=== PATIENT | male | born 1955 | race Caucasian/White ===

== ENCOUNTER → 2016-10-11 | Outpatient (REF) | LOC: WSOH 15:19 | DX: Z23 Encounter for immunization (principal) ==

== ENCOUNTER → 2017-01-17 | Outpatient (REF) | LOC: WSOH 15:15 | DX: Z23 Encounter for immunization (principal) ==

== ENCOUNTER 2018-07-15 06:46 | Day surgery (SDC) | payer BC ==
[~2018-07-15] VITALS: Ht 172.7 cm; Wt 99.9 kg
[2018-07-15] VITALS (7 sets, daily range): BP systolic 171–201; BP diastolic 100–112; PULSE 48–62; TEMP 97.1
[2018-07-15] MEDS ORDERED: PROAIR HFA0.09 MG/AC IH (07:53)
[2018-07-15 07:58] LABS: HEMATOCRIT 42.3 % (42.0-52.0); HEMOGLOBIN 14.1 g/dl (13.5-18.0); MEAN CELL VOLUME 91 fl (80.0-100.0); MEAN CORPUSCULAR HEMOGLOBIN 30 pg (27.0-31.0); MEAN CORPUSCULAR HGB CONC 33 g/dl (33.0-37.0); MEAN PLATELET VOLUME 9.8 fl (7.4-10.4); PLATELET COUNT 213 K/mm3 (130-400); RED BLOOD COUNT 4.65 M/mm3 (4.20-5.60); REDCELL DISTRIBUTION WIDTH-CV 13.3 % (11.5-14.5)
[2018-07-15 08:03] LABS: PROTHROMBIN TIME 11.1 SECONDS (9.7-12.8)
[2018-07-15] MEDS ORDERED: IPRATROPIUM BROM3 M1 IH (08:07)
[2018-07-15 08:10] LABS: CALCIUM 9.2 mg/dL (8.4-10.2); CREATININE, serum 0.71 mg/dL (0.66-1.25); POTASSIUM 4.7 mmol/L (3.4-5.0)
[2018-07-15] MEDS ORDERED: 00186-0370-20 IH (08:10)
[2018-07-15] MEDS ORDERED: DOXYCYCLINE HY100 MG PO (08:11)
[2018-07-15] MEDS ORDERED: COZAAR100 MG PO ×2 (08:12→08:13)
[2018-07-15] MEDS ORDERED: LEVOXYL0.05 MG PO (08:12)
[2018-07-15] MEDS ORDERED: GLUCOPHAGE1000 MG PO (08:13)
[2018-07-15] MEDS ORDERED: ZOCOR 20MG20 MG PO (08:14)
[2018-07-15] MEDS ORDERED: SINGULAIR 110 MG/TAB PO (08:14)
[2018-07-15] MEDS ORDERED: CIALIS20 MG PO (08:16)
[2018-07-15] MEDS ORDERED: NORVASC 5MG5 MG/TAB PO (09:36)
== END 2018-07-15 12:00 | disposition home or self-care (01) ==
LOC: COL.CAR 06:46
PROVIDERS: Internal Medicine Cardiovascular Disease
DX: I25.10 Atherosclerotic heart disease of native coronary artery without angina pectoris (principal); R94.39 Abnormal result of other cardiovascular function study; J42 Unspecified chronic bronchitis; E11.9 Type 2 diabetes mellitus without complications; E78.2 Mixed hyperlipidemia; I10 Essential (primary) hypertension; F17.210 Nicotine dependence, cigarettes, uncomplicated; E78.00 Pure hypercholesterolemia, unspecified; Z86.010 Personal history of colon polyps; Z88.0 Allergy status to penicillin; Z88.6 Allergy status to analgesic agent; Z88.8 Allergy status to other drugs, medicaments and biological substances; Z79.84 Long term (current) use of oral hypoglycemic drugs; Z80.9 Family history of malignant neoplasm, unspecified; Z82.49 Family history of ischemic heart disease and other diseases of the circulatory system
CPT/HCPCS: C1769; J1644; J2250; J3010

== ENCOUNTER 2023-07-22 12:49 | Emergency (ER) | payer OTHER ==
[~2023-07-22] VITALS: Ht 172.7 cm; Wt 80.0 kg
[~2023-07-22 12:49] MED LIST: 00186-0370-20 IH; CIALIS20 MG PO; COZAAR100 MG PO; DOXYCYCLINE HY100 MG PO; GLUCOPHAGE1000 MG PO; IPRATROPIUM BROM3 M1 IH; LEVOXYL0.05 MG PO; NORVASC 5MG5 MG/TAB PO; PROAIR HFA0.09 MG/AC IH; SINGULAIR 110 MG/TAB PO; ZOCOR 20MG20 MG PO
[2023-07-22 13:03] VITALS: TEMP 98.1
[2023-07-22] MEDS ORDERED: PERCOCET 325 MG1 TA2 PO (14:50)
[2023-07-22 15:30] VITALS: BP 136/83; PULSE 69
== END 2023-07-22 15:30 | disposition home or self-care (01) ==
LOC: COL.ER 12:49
DX: S80.12XA Contusion of left lower leg, initial encounter (principal); W10.9XXA Fall (on) (from) unspecified stairs and steps, initial encounter

== ENCOUNTER 2023-10-08 19:29 | Inpatient (IN) | payer OTHER ==
[~2023-10-08] VITALS: Ht 172.7 cm; Wt 80.1 kg
[~2023-10-08 19:29] MED LIST changes: +PERCOCET 325 MG1 TA2 PO
[2023-10-08 21:29] LABS: COLLECTION METHOD CLEAN CATCH
[2023-10-08 21:32] LABS: BASO # 0.1 K/mm3 (0.0-0.2); BASO % 1.6 % (0.0-2.0); EOS # 0.4 K/mm3 (0.0-0.7); EOS % 5.1 % (0.0-4.0); GRAN # 4.9 K/mm3 (1.4-6.5); GRAN % 63.7 % (42.2-75.2); HEMATOCRIT 44.2 % (42.0-52.0); HEMOGLOBIN 15.5 g/dl (13.5-18.0); LYMPH # 1.4 K/mm3 (1.2-3.4); LYMPH % 18.7 % (20.0-51.0); MEAN CELL VOLUME 90 fl (80.0-100.0); MEAN CORPUSCULAR HEMOGLOBIN 32 pg (27-31); MEAN CORPUSCULAR HGB CONC 35 g/dl (33.0-37.0); MEAN PLATELET VOLUME 9.8 fl (7.4-10.4); MONO # 0.8 K/mm3 (0.1-0.6); MONO % 10.4 % (1.7-9.3); PLATELET COUNT 221 K/mm3 (130-400); RED BLOOD COUNT 4.91 M/mm3 (4.20-5.60); REDCELL DISTRIBUTION WIDTH-CV 13.5 % (11.5-14.5)
[2023-10-08 21:54] LABS: ALBUMIN 4.2 gm/dL (3.4-4.8); BILIRUBIN,TOTAL 0.2 mg/dL (0.2-1.2); C-REACTIVE PROTEIN 0.23 mg/dL (0.00-0.50); CALCIUM 10.5 mg/dL (8.4-10.2); CREATININE, serum 1.52 mg/dL (0.72-1.25); POTASSIUM 3.5 mmol/L (3.5-4.5); TOTAL PROTEIN 7.9 gm/dL (6.2-8.1)
[2023-10-08] MEDS ORDERED: NS 1,000 ML IV ONE (22:00)
[2023-10-08] MEDS ORDERED: NS 64 ML IV SCH (22:08)
[2023-10-08] MEDS ORDERED: Iohexol 300 - 100 ML VIAL IV ONE (22:08)
[2023-10-08 22:09] LABS: PH 5.5 (5.0-8.5); SQUAMOUS EPITHELIAL 0-2 /hpf (0-10); URINE APPEARANCE Clear (CLEAR/HAZY); URINE BACTERIA Rare /hpf (NONE SEEN); URINE BLOOD Negative (NEGATIVE); URINE COLOR Yellow (YELLOW); URINE GLUCOSE 2+ (NEGATIVE); URINE KETONE Negative (NEGATIVE); URINE NITRATE Negative (NEGATIVE); URINE PROTEIN(semi-quant) Negative (NEGATIVE); URINE RBC 0-2 /hpf (0-2); URINE UROBILINOGEN 0.2 E.U/dL (0.2-1.0)
[2023-10-08] MEDS ORDERED: MINERAL OIL RC ONE ×2 (23:15→23:45)
[2023-10-09] VITALS (9 sets, daily range): BP systolic 134–163; BP diastolic 73–81; PULSE 51–60; TEMP 97.5–97.8
[2023-10-09] MEDS ORDERED: LR 1,000 ML IV SCH (01:30)
[2023-10-09] MEDS ORDERED: Ondansetron 4 MG/2 ML VIAL IV PRN ×2 (01:30→08:15)
[2023-10-09 01:49] LABS: MAGNESIUM 2.3 mg/dL (1.6-2.6); PHOSPHOROUS 3.2 mg/dL (2.3-4.7)
[2023-10-09] MEDS ORDERED: PLAVIX 75MG TAB75 MG PO (02:04)
[2023-10-09] MEDS ORDERED: LIPITOR20 MG PO (02:04)
[2023-10-09] MEDS ORDERED: COREG 6.256.25 MG/TA PO (02:04)
[2023-10-09] MEDS ORDERED: JARDIANCE25 PO (02:05)
[2023-10-09] MEDS ORDERED: LASIX 40MG TABL40 MG PO (02:06)
[2023-10-09] MEDS ORDERED: SINGULAIR 110 MG/TAB PO (02:06)
[2023-10-09] MEDS ORDERED: CLARITIN 1010 MG/TAB PO (02:06)
[2023-10-09] MEDS ORDERED: NESINA25 PO (02:07)
[2023-10-09] MEDS ORDERED: SPIRIVA RE2.5 MCG/Ac IH (02:07)
[2023-10-09] MEDS ORDERED: NORVASC 10MG10 MG PO (02:07)
[2023-10-09] MEDS ORDERED: HYGROTON 2525 MG/TAB PO (02:08)
[2023-10-09] MEDS ORDERED: GLUCOPHAGE500 MG/TAB PO (02:08)
[2023-10-09] MEDS ORDERED: *Potassium Replacement Protocol MC SCH (02:30)
[2023-10-09] MEDS ORDERED: Potassium Chloride 100 ML IV SCH (02:30)
[2023-10-09] MEDS ORDERED: Loratadine 10 MG TAB PO PRN (04:00)
[2023-10-09] MEDS ORDERED: Albuterol/Ipratropium 3 MG-0.5 MG/3 ML Neb Soln IH PRN (04:15)
[2023-10-09] MEDS ORDERED: Glucagon 1 MG VIAL IM PRN (04:45)
[2023-10-09] MEDS ORDERED: Dextrose 50% Water 25 GM/50 ML SYRINGE IV PRN (04:45)
[2023-10-09] MEDS ORDERED: Dextrose (Glucose) 15 GM (4 x 3.75 GM) Chewable TABLET PACK PO PRN (04:45)
[2023-10-09] MEDS ORDERED: PEG3350/Sod Sulf,Bicarb,Cl/KCl Oral Soln 4,000 ML Bottle PO ONE (05:30)
[2023-10-09 07:26] LABS: CALCIUM 9.7 mg/dL (8.4-10.2); CREATININE, serum 1.32 mg/dL (0.72-1.25); POTASSIUM 3.7 mmol/L (3.5-4.5)
--- NOTE | 2023-10-09 07:33 | NUR ---
patient arrived from ED at 0230, alert and oriented x4, self ambulate with steady gait. pt denies chest pain and shortness of breath, reporting tolerable abd and rectal pain without to need of pain medications at this time. IV in RAC is patent, site clean dry and intact with LR running at 50 ml/hr. scab noted on right cuevas and scarring along left leg noted. pt reported passing gas this a.m. 0505- Simin, MAMMOGRAPHY TECH called for verification, orders placed for enema, start of bowel prep this a.m., and NPO dietary status, orders placed per request. received a soapsud enema at 0620, some leakage of the enema during administration. potassium replacement initiated via IV. pt has no further needs questions or concerns at this time. call light within reach. care passed on to day shift nurse.
[2023-10-09] MEDS ORDERED: Carvedilol 6.25 MG TAB PO SCH (08:00)
[2023-10-09] MEDS ORDERED: Insulin Aspart (NovoLOG) SQ SCH (08:00)
[2023-10-09] MEDS ORDERED: Bisacodyl 5 MG TAB PO ONE (08:15)
[2023-10-09] MEDS ORDERED: Ondansetron 4 MG/2 ML VIAL IV ONE (08:30)
[2023-10-09] MEDS ORDERED: amLODIPine 10 MG TAB PO SCH (09:00)
[2023-10-09] MEDS ORDERED: Tiotropium 2.5 MCG Respimat MDI IH SCH (09:00)
[2023-10-09] MEDS ORDERED: Pantoprazole 40 MG in NS 10 ML IV SCH (09:00)
--- NOTE | 2023-10-09 09:31 | NUR ---
Initial visit; Patient thanked Santa'S Helper for visiting and listening. Patient is uncomfortable and knows he has to continue to have tests. Patient fears Cancer and was in considerable pain when he was Admitted to the Hospital last night. Patient was receptive to [facility] Helper keeping him in her prayers and offering God's blessings. [facility] Helper will continue to Follow-up.
--- NOTE | 2023-10-09 15:31 | NUR ---
Heel Shaper met with patient to discuss discharge planning. Patient lives alone in [place] and goes to the [facility] for primary care. Patient is on the [facility] team and sees Dr. Person. Patient gets all of his medications through the [facility]. Patient does not use any DME and is independent with ADLS. Patient stated "it's all done" when SW asked about Advance Directives. Patient advised his daughter, Casey (ph#[phone]) is DPOA-HC. Patient plans to return home at time of discharge. Discharge Plan: Home
[2023-10-09] MEDS ORDERED: PEG3350/Sod Sulf,Bicarb,Cl/KCl Oral Soln 4,000 ML Bottle PO SCH (17:30)
[2023-10-09] MEDS ORDERED: Montelukast 10 MG TAB PO SCH (21:00)
[2023-10-09] MEDS ORDERED: Atorvastatin 20 MG TAB PO SCH (21:00)
[2023-10-10] VITALS (16 sets, daily range): BP systolic 122–161; BP diastolic 61–92; PULSE 51–98; TEMP 97.2–98
--- NOTE | 2023-10-10 02:01 | NUR ---
patient lying in bed alert and oriented x4. pt denies chest pain and shortness of breath, reports having had some liuqed stool around 1930 states "started seeing some of the vegetable soup I had 4 or so days ago". per orders, soapsud enema given, and pt continuing bowl prep golytely, NPO status at midnight. pt reports having multiple trips to the toilet with continued liquid brown stools. IV in RAC is patent, site is clean dry and intact with LR running at 50 ml/hr. right skin scab with no additional remarkable skin findings noted. pt has nor further needs, questions, or concerns at this time. call light within reach, ambulating with steady gait. will continue to monitor.
[2023-10-10 07:40] LABS: BASO # 0.1 K/mm3 (0.0-0.2); BASO % 1.7 % (0.0-2.0); EOS # 0.3 K/mm3 (0.0-0.7); EOS % 6.5 % (0.0-4.0); GRAN % 57.6 % (42.2-75.2); HEMATOCRIT 38.8 % (42.0-52.0); HEMOGLOBIN 13.7 g/dl (13.5-18.0); LYMPH # 1.1 K/mm3 (1.2-3.4); LYMPH % 20.5 % (20.0-51.0); MEAN CELL VOLUME 89 fl (80.0-100.0); MEAN CORPUSCULAR HEMOGLOBIN 31 pg (27-31); MEAN CORPUSCULAR HGB CONC 35 g/dl (33.0-37.0); MEAN PLATELET VOLUME 9.8 fl (7.4-10.4); MONO # 0.7 K/mm3 (0.1-0.6); MONO % 13.3 % (1.7-9.3); PLATELET COUNT 175 K/mm3 (130-400); RED BLOOD COUNT 4.38 M/mm3 (4.20-5.60); REDCELL DISTRIBUTION WIDTH-CV 13.4 % (11.5-14.5)
[2023-10-10 07:58] LABS: ALBUMIN 3.7 gm/dL (3.4-4.8); BILIRUBIN,TOTAL 0.4 mg/dL (0.2-1.2); CALCIUM 9.6 mg/dL (8.4-10.2); CREATININE, serum 1.15 mg/dL (0.72-1.25); MAGNESIUM 1.9 mg/dL (1.6-2.6); POTASSIUM 3.4 mmol/L (3.5-4.5); TOTAL PROTEIN 6.6 gm/dL (6.2-8.1)
[2023-10-10] MEDS ORDERED: VIAGRA50 M1 PO (10:00)
[2023-10-10] MEDS ORDERED: PROCTOCREAM-HC2.5% RC (10:02)
[2023-10-10] MEDS ORDERED: HEMORRHOIDAL HYGI50% TP (10:03)
[2023-10-10] MEDS ORDERED: Gabapentin 300 MG CAP PO SCH ×2 (11:30→16:35)
[2023-10-10] MEDS ORDERED: Potassium Chloride 100 ML IV SCH (11:45)
[2023-10-10] MEDS ORDERED: LR 1,000 ML IV SCH (12:00)
[2023-10-10] MEDS ORDERED: Lidocaine PF 2% (20 MG/ML) 5 ML VIAL ONE (14:55)
[2023-10-10] MEDS ORDERED: Potassium Bicarbonate/Citrate 20 MEQ Effervescent TAB PO SCH (16:30)
--- NOTE | 2023-10-10 20:00 | NUR ---
Patient resting in bed with family at bedside. Denies any pain or needs at this time. Assessment complete. IV in right AC flushes easily with no complications. Call light and persoanl items in reach. Bed in low position and bed alarm on.
[2023-10-11] VITALS (8 sets, daily range): BP systolic 122–166; BP diastolic 75–82; PULSE 43–52; TEMP 97.3–98.3
--- NOTE | 2023-10-11 06:00 | NUR ---
Patient resting in bed. Denies any pain or needs at this time. Patient had an uneventful evening. Call ligth and personal items in reach. Bed in low position and bed alarm on.
[2023-10-11 07:16] LABS: BASO # 0.1 K/mm3 (0.0-0.2); BASO % 1.4 % (0.0-2.0); EOS # 0.3 K/mm3 (0.0-0.7); EOS % 5.2 % (0.0-4.0); GRAN # 3.8 K/mm3 (1.4-6.5); GRAN % 65.3 % (42.2-75.2); HEMATOCRIT 40.6 % (42.0-52.0); HEMOGLOBIN 14.1 g/dl (13.5-18.0); LYMPH # 0.9 K/mm3 (1.2-3.4); LYMPH % 15.8 % (20.0-51.0); MEAN CELL VOLUME 89 fl (80.0-100.0); MEAN CORPUSCULAR HEMOGLOBIN 31 pg (27-31); MEAN CORPUSCULAR HGB CONC 35 g/dl (33.0-37.0); MEAN PLATELET VOLUME 9.5 fl (7.4-10.4); MONO # 0.7 K/mm3 (0.1-0.6); PLATELET COUNT 169 K/mm3 (130-400); RED BLOOD COUNT 4.55 M/mm3 (4.20-5.60); REDCELL DISTRIBUTION WIDTH-CV 13.4 % (11.5-14.5)
[2023-10-11 07:32] LABS: ALBUMIN 3.7 gm/dL (3.4-4.8); BILIRUBIN,TOTAL 0.4 mg/dL (0.2-1.2); CALCIUM 10.1 mg/dL (8.4-10.2); CREATININE, serum 1.21 mg/dL (0.72-1.25); MAGNESIUM 1.9 mg/dL (1.6-2.6); POTASSIUM 4.1 mmol/L (3.5-4.5); TOTAL PROTEIN 6.7 gm/dL (6.2-8.1)
--- NOTE | 2023-10-11 09:58 | NUR ---
Follow-up visit; Patient still uncomfortable and wanting food. Sixto has had a difficult time with the [facility] and has had a battery of tests at our hospital to discern his health issues. He is faced with surgery he says, for a tumor and is waiting to see when the Surgeon can do the surgery. Registered Nurse Cardiovascular Icu will keep Sixto in her prayers. She spoke with him about his isabel and giving everything (his anxiety, anger, fear) over to God and not taking it back and to let Registered Nurse Cardiovascular Icu know if there is anything she can do. She offered a "[place]," and will keep Sixto in her prayers and will follow up.
[2023-10-11] MEDS ORDERED: NEURONTIN300 MG/CAP PO (13:01)
--- NOTE | 2023-10-11 15:55 | NUR ---
PATIENT DISCHARGED AT THIS TIME. DISCHARGE INFROMATION AND EDUCATION REVIEWED BEFORE LEAVING UNIT - DAUGHTER ON SPEAKER PHONE. SIGNATURES RECIEVED. PATIENT ALERT/ORIENTED X4 AND AMBULATORY UPON LEAVING. PCT'S TOOK PATIENT TO ER BAY WHERE RIDE PICKED PATIENT UP.
== END 2023-10-11 15:55 | disposition home or self-care (01) | DRG 392 ==
LOC: COL.ER 19:29 → MEDICAL 10-09 01:29
PROVIDERS: Hospitalist; Nurse Practitioner; Nurse Practitioner Family; ADMIT Internal Medicine
PROC: 0DBP8ZX Excision of Rectum, Via Natural or Artificial Opening Endoscopic, Diagnostic (ICD-10-PCS; principal; 2023-10-09)
PROC: 0DBN8ZX Excision of Sigmoid Colon, Via Natural or Artificial Opening Endoscopic, Diagnostic (ICD-10-PCS; 2023-10-09)
DX: K59.00 Constipation, unspecified (principal); N17.9 Acute kidney failure, unspecified; I13.0 Hypertensive heart and chronic kidney disease with heart failure and stage 1 through stage 4 chronic kidney disease, or unspecified chronic kidney disease; R14.0 Abdominal distension (gaseous); I10 Essential (primary) hypertension; E78.5 Hyperlipidemia, unspecified; I25.10 Atherosclerotic heart disease of native coronary artery without angina pectoris; I50.9 Heart failure, unspecified; J44.9 Chronic obstructive pulmonary disease, unspecified; E11.42 Type 2 diabetes mellitus with diabetic polyneuropathy; N18.9 Chronic kidney disease, unspecified; E87.6 Hypokalemia; E83.52 Hypercalcemia
CPT/HCPCS: A9270; C9113; G0378; J2405; J2704; J2765; J3480; J7030; J7120; Q9967

== ENCOUNTER 2024-01-17 21:49 | Inpatient (IN) | payer OTHER ==
[~2024-01-17] VITALS: Ht 172.7 cm; Wt 73.7 kg
[~2024-01-17 21:49] MED LIST changes: +CLARITIN 1010 MG/TAB PO; +COREG 6.256.25 MG/TA PO; +GLUCOPHAGE500 MG/TAB PO; +HEMORRHOIDAL HYGI50% TP; +HYGROTON 2525 MG/TAB PO; +JARDIANCE25 PO; +LASIX 40MG TABL40 MG PO; +LIPITOR20 MG PO; +NESINA25 PO; +NEURONTIN300 MG/CAP PO; +NORVASC 10MG10 MG PO; +PLAVIX 75MG TAB75 MG PO; +PROCTOCREAM-HC2.5% RC; +SPIRIVA RE2.5 MCG/Ac IH; +VIAGRA50 M1 PO
[2024-01-17] MEDS ORDERED: NS 1,000 ML IV ONE (23:30)
[2024-01-18] VITALS (7 sets, daily range): BP systolic 104–157; BP diastolic 65–74; PULSE 64–82; TEMP 97.6–98.9
[2024-01-18] LABS: MEAN CELL VOLUME 91 fl (80.0-100.0); MEAN CORPUSCULAR HGB CONC 36 g/dl (33.0-37.0); MEAN PLATELET VOLUME 9.2 fl (7.4-10.4); PLATELET COUNT 139 K/mm3 (130-400); RED BLOOD COUNT 2.97 M/mm3 (4.20-5.60); REDCELL DISTRIBUTION WIDTH-CV 17.6 % (11.5-14.5)
[2024-01-18 00:05] LABS: HEMATOCRIT 27.1 % (42.0-52.0); HEMOGLOBIN 9.7 g/dl (13.5-18.0); MEAN CORPUSCULAR HEMOGLOBIN 33 pg (27-31)
[2024-01-18] MEDS ORDERED: Albuterol/Ipratropium 3 MG-0.5 MG/3 ML Neb Soln IH ONE (00:15)
[2024-01-18 00:19] LABS: ALBUMIN 3.8 g/dL (3.4-4.8); BILIRUBIN,TOTAL 0.5 mg/dL (0.2-1.2); C-REACTIVE PROTEIN 17.29 mg/dL (0.00-0.50); CREATININE, serum 2.02 mg/dL (0.72-1.25); POTASSIUM 3.2 mEq/L (3.5-4.5); TOTAL PROTEIN 7.7 g/dl (6.2-8.1)
[2024-01-18 00:39] LABS: BAND 4 % (0-10); LYMPHOCYTE 7 % (20.0-51.0); NEUTROPHILS 88 % (42.0-75.2)
[2024-01-18 00:40] LABS: ANISOCYTOSIS 1+; PLATELET ESTIMATE NORMAL (NORMAL)
[2024-01-18] MEDS ORDERED: Oseltamivir 75 MG CAP PO ONE (00:45)
[2024-01-18] MEDS ORDERED: NS 1,000 ML IV ONE (00:45)
[2024-01-18] MEDS ORDERED: Morphine 4 MG/ML VIAL IV ONE (01:00)
[2024-01-18] MEDS ORDERED: Acetaminophen 325 MG TAB PO PRN (01:15)
[2024-01-18] MEDS ORDERED: NS 1,000 ML IV SCH (01:15)
[2024-01-18] MEDS ORDERED: Ondansetron 4 MG/2 ML VIAL IV PRN (01:15)
[2024-01-18] MEDS ORDERED: traMADol 50 MG TAB PO PRN (01:15)
[2024-01-18] MEDS ORDERED: Albuterol/Ipratropium 3 MG-0.5 MG/3 ML Neb Soln IH PRN (01:15)
[2024-01-18] MEDS ORDERED: Vancomycin 1.25 GM,Special Dose/Pharmacy Prepared 1.25 GM in NS 250 ML IV SCH (01:15)
[2024-01-18] MEDS ORDERED: EUTHYROX25 MCG PO (01:29)
[2024-01-18] MEDS ORDERED: K-TAB20 PO (01:31)
[2024-01-18 01:35] LABS: COLLECTION METHOD CLEAN CATCH
[2024-01-18 01:44] LABS: URINE APPEARANCE CLOUDY (CLEAR/HAZY); URINE BLOOD NEGATIVE (NEGATIVE); URINE COLOR Dark Yellow (YELLOW); URINE GLUCOSE 3+ (NEGATIVE); URINE KETONE NEGATIVE (NEGATIVE); URINE NITRATE POSITIVE (NEGATIVE); URINE PROTEIN(semi-quant) TRACE (NEGATIVE)
[2024-01-18] MEDS ORDERED: Dextrose 50% Water 25 GM/50 ML SYRINGE IV PRN (01:45)
[2024-01-18] MEDS ORDERED: Glucagon 1 MG VIAL IM PRN (01:45)
[2024-01-18] MEDS ORDERED: Dextrose (Glucose) 15 GM (4 x 3.75 GM) Chewable TABLET PACK PO PRN (01:45)
--- NOTE | 2024-01-18 01:58 | NUR ---
PATIENT ARRIVED TO MEDICAL FLOOR AT APPROX 0153.
[2024-01-18 02:03] LABS: SQUAMOUS EPITHELIAL 0-2 /hpf (0-10); URINE RBC NONE SEEN /hpf (0-2); URINE WBC 0-2 /hpf (0-2)
[2024-01-18 02:04] LABS: URINE BACTERIA RARE /hpf (NONE SEEN)
[2024-01-18] MEDS ORDERED: Loratadine 10 MG TAB PO PRN (02:30)
--- NOTE | 2024-01-18 02:34 | NUR ---
PATIENT SITTING UP IN BED CONVERSATING WITH STAFF. PATIENT IS ALERT AND ORIENTED. INTAKE AND ASSESSMENT COMPLETE. PORT TO RIGHT CHEST. CDI. STAFF IS NOT TO USE, IT IS BEING USED FOR CHEMO TX. ABDOMEN IS DISTENDED, SOFT, BS AUDIBLE X4. REDNESS AND DRY SKIN NOTED TO SACRAL AREA. THIS NURSE APPLIED BARRIER CREAM. TELEMETRY ON. PATIENT ORIENTED TO ROOM. PATIENT COMPLAINS OF HUNGER, THIS NURSE PROVIDED A SANDWICH BOX. DENIES FURTHER NEEDS AT THIS TIME. CALL LIGHT WITHIN REACH. WILL MONITOR
[2024-01-18] MEDS ORDERED: Cefepime 1 G in Water For Injection,Sterile 10 ML IV SCH (03:00)
--- NOTE | 2024-01-18 04:11 | NUR ---
PATIENT UP TO BATHROOM WITH THIS NURSE. GAIT IS STEADY WITH WALKER. DENIES PAIN OR DISCOMFORT AT THIS TIME. WILL MONITOR
--- NOTE | 2024-01-18 05:50 | NUR ---
PATIENT UP TO BATHROOM WITH THIS NURSE. PATIENT DENIES PAIN OR DISCOMFORT AT THIS TIME.
--- NOTE | 2024-01-18 06:22 | NUR ---
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 ht 172.7 cm wt 73.7 kg SCr 2.02 with estimated CrCl ~30 ml/min half life 24.8 hours Plan: Patient received an initial loading dose of vancomycin 1000 mg x1 in the ED; will give a supplemental loading dose of vancomycin 500 mg for a total loading dose of 1500 mg (20.4 mg/kg); followed by a maintenance regimen of vancomycin 1000 mg q24h to target a goal trough of 15-20 mcg/ml. Will follow patient's renal function, micro data, and vancomycin levels as indicated to assess for any necessary changes to regimen. Thank you for this dosing consult.
--- NOTE | 2024-01-18 07:00 | NUR ---
PATIENT AWAKE AND ALERT, SITTINGUP IN BED. PATIENT DENIES ANY NEEDS OR COMPLAINTS AT THIS TIME. CALL LIGHT YAIMA LAMBERT. IVF INFUSING.
[2024-01-18] MEDS ORDERED: Carvedilol 6.25 MG TAB PO SCH (08:00)
[2024-01-18] MEDS ORDERED: Insulin Lispro (HumaLOG) SQ SCH (08:00)
[2024-01-18] MEDS ORDERED: Tiotropium 2.5 MCG Respimat MDI IH SCH (09:00)
[2024-01-18] MEDS ORDERED: Tiotropium 18 MCG **** subs to Tiotropium 5 mcg IH SCH (09:00)
[2024-01-18] MEDS ORDERED: Heparin 5,000 UNITS/ML 1 ML VIAL SQ SCH (09:00)
[2024-01-18] MEDS ORDERED: Nicotine 14 MG DAILY PATCH TD SCH (09:00)
[2024-01-18] MEDS ORDERED: Oseltamivir 30 MG CAP PO SCH (09:00)
[2024-01-18] MEDS ORDERED: Clopidogrel 75 MG TAB PO SCH (09:00)
[2024-01-18] MEDS ORDERED: Gabapentin 300 MG CAP PO SCH (09:25)
[2024-01-18 10:08] LABS: CALCIUM 8.5 mg/dL (8.4-10.2); CREATININE, serum 1.56 mg/dL (0.72-1.25); POTASSIUM 3.3 mEq/L (3.5-4.5)
[2024-01-18 10:14] LABS: MEAN CELL VOLUME 93 fl (80.0-100.0); MEAN CORPUSCULAR HGB CONC 35 g/dl (33.0-37.0); MEAN PLATELET VOLUME 9.8 fl (7.4-10.4); PLATELET COUNT 126 K/mm3 (130-400); RED BLOOD COUNT 2.59 M/mm3 (4.20-5.60); REDCELL DISTRIBUTION WIDTH-CV 17.8 % (11.5-14.5)
[2024-01-18 10:22] LABS: HEMOGLOBIN 8.3 g/dl (13.5-18.0); MEAN CORPUSCULAR HEMOGLOBIN 32 pg (27-31)
[2024-01-18 10:59] LABS: EOSINOPHIL 1 % (0-4)
[2024-01-18 11:02] LABS: BAND 5 % (0-10); LYMPHOCYTE 4 % (20.0-51.0); NEUTROPHILS 89 % (42.0-75.2)
[2024-01-18 11:03] LABS: ANISOCYTOSIS 1+; PLATELET ESTIMATE DECREASED (NORMAL)
--- NOTE | 2024-01-18 11:22 | NUR ---
SW met with patient to complete intake and discuss discharge planning. Patient reports that he lives in [place]. Patient reports that his NOK is daughter Chloe Spencer [phone]. Patient shared that he does have DPO[facility] with [facility] and daughter in [place] also has copy as she is listed as veterans employment representative Casey Alegria. Patient reports no current DMEs and independent with ADLs. Patient shared that his PCP is with [facility]/ Dr. Spencer and also uses the [facility] for prescriptions. Patient is anticipating to discharge back to his home pending medical recommendations. Discharge plan: home (pending)
--- NOTE | 2024-01-18 12:00 | NUR ---
PATIENT COMPLAINING OF DISCOMFORT TO SACRUM. RN SUGGESTED PATIENT TO STI UP IN THE RECLINER. PATIENT REFUSED STATING "IT BE MOUCH BETTER." PATIENT ACCEPTED RN OFFER TO PLACE A WAFFLE CUSHION UNDER HIS BOTTOM. PATIENT STATED HE WILL TRY THIS FOR NOW.
--- NOTE | 2024-01-18 12:20 | NUR ---
Data: Patient declined Evp Chief Exploration Officer visit offered during Evp Chief Exploration Officer rounds. Assessment: None at this time. Plan of Care: Chaplains will remain available as needed/requested while Patient is admitted to this hospital.
[2024-01-18] MEDS ORDERED: Magnesium Sulfate 4% 50 ML IV ONE (15:30)
[2024-01-18] MEDS ORDERED: *Potassium Replacement Protocol MC SCH (15:30)
[2024-01-18] MEDS ORDERED: Potassium Bicarbonate/Citrate 20 MEQ Effervescent TAB PO SCH (15:30)
--- NOTE | 2024-01-18 16:00 | NUR ---
PATIENT DENIES ANY NEEDS OR COMPLAINTS AT THIS TIME. PATINET SITTING UP IN BED. CALL LIGHT WITHIN REACH.
--- NOTE | 2024-01-18 19:08 | NUR ---
Bedside report received from LINDSEY Gifford. Pt is currently resting in bed with no complaints.
[2024-01-18] MEDS ORDERED: Atorvastatin 40 MG TAB PO SCH (21:00)
[2024-01-18] MEDS ORDERED: Melatonin 3 MG TAB PO SCH (21:00)
[2024-01-18] MEDS ORDERED: Montelukast 10 MG TAB PO SCH ×2 (21:00)
[2024-01-19] VITALS (12 sets, daily range): BP systolic 101–129; BP diastolic 52–74; PULSE 66–81; TEMP 98.4–100
--- NOTE | 2024-01-19 04:17 | NUR ---
Shift assessment completed. VSS. Pt is A&O x4. Neutropenic and droplet precautions in place. NS infusing into Lt forearm with no complications. This nurse assisted pt to bathroom and back to bed with no complications. Pt reports no pain at this time. Pt has no request. Call light within reach.
[2024-01-19 06:40] LABS: MEAN CELL VOLUME 91 fl (80.0-100.0); MEAN CORPUSCULAR HGB CONC 36 g/dl (33.0-37.0); MEAN PLATELET VOLUME 9.8 fl (7.4-10.4); PLATELET COUNT 92 K/mm3 (130-400); RED BLOOD COUNT 2.63 M/mm3 (4.20-5.60); REDCELL DISTRIBUTION WIDTH-CV 17.7 % (11.5-14.5)
[2024-01-19 06:44] LABS: ALBUMIN 3.3 g/dL (3.4-4.8); BILIRUBIN,TOTAL 0.4 mg/dL (0.2-1.2); CALCIUM 8.9 mg/dL (8.4-10.2); CREATININE, serum 1.16 mg/dL (0.72-1.25); POTASSIUM 3.7 mEq/L (3.5-4.5); TOTAL PROTEIN 6.7 g/dl (6.2-8.1)
--- NOTE | 2024-01-19 06:44 | NUR ---
Bedside report given to LINDSEY Gifford. Pt is currently awake in bed watching tv with no complaints. Call light within reach and isolation precautions in place.
[2024-01-19 06:48] LABS: HEMOGLOBIN 8.7 g/dl (13.5-18.0); MEAN CORPUSCULAR HEMOGLOBIN 33 pg (27-31)
--- NOTE | 2024-01-19 07:00 | NUR ---
PATIENT AWAKE, SITTIGN UP IN BED. PATEINT DENIES ANY NEEDS OR COMPLAINTS AT THIS TIME. CALL LIGHT WITHIN REACH.
[2024-01-19 07:54] LABS: ANISOCYTOSIS 2+; BAND 9 % (0-10); EOSINOPHIL 1 % (0-4); LYMPHOCYTE 31 % (20.0-51.0); NEUTROPHILS 57 % (42.0-75.2); OVALOCYTES 1+; PLATELET ESTIMATE DECREASED (NORMAL)
--- NOTE | 2024-01-19 08:30 | NUR ---
AWARE OF CRITICAL WBC
[2024-01-19] MEDS ORDERED: Potassium Bicarbonate/Citrate 20 MEQ Effervescent TAB PO SCH (09:15)
--- NOTE | 2024-01-19 12:39 | NUR ---
Data: On-call Client Server Developer offered visit to Patient. Patient declined.
--- NOTE | 2024-01-19 13:00 | NUR ---
PATIENT COMPLAINING OF DISCOMFORT AND PAIN TO SACRUM. RN TOLD PATIENT MAYBE GETTING UP OUT OF BED AND TRYING THE RECLINER WILL HELP. PATIENT REFUSED AND STATED "I DONT THINK IT WILL BE MUCH DIFFERENT. I WOULD RATHER JUST TAKE THE TRAMADOL."
--- NOTE | 2024-01-19 15:46 | NUR ---
PATINET ASLEEP, RESTING IN BED. PATIENT AROUSES EASILY TO NAME. PATIENT DENIES ANY NEEDS OR COMPLAINTS AT THIS TIME. CALL LIGHT WITHIN REACH. IVF INFUSING ORDERED.
[2024-01-19] MEDS ORDERED: Cefepime 1 G in Water For Injection,Sterile 10 ML IV SCH (16:00)
[2024-01-20] VITALS (11 sets, daily range): BP systolic 111–147; BP diastolic 63–70; PULSE 58–96; TEMP 97.7–98.8
[2024-01-20] MEDS ORDERED: Lactulose Oral Soln 10 GM/15 ML CUP PO ONE (03:45)
[2024-01-20 05:53] LABS: MEAN CELL VOLUME 94 fl (80.0-100.0); MEAN CORPUSCULAR HGB CONC 34 g/dl (33.0-37.0); MEAN PLATELET VOLUME 10.9 fl (7.4-10.4); PLATELET COUNT 59 K/mm3 (130-400); RED BLOOD COUNT 2.25 M/mm3 (4.20-5.60); REDCELL DISTRIBUTION WIDTH-CV 17.6 % (11.5-14.5)
[2024-01-20 06:18] LABS: ALBUMIN 2.8 g/dL (3.4-4.8); BILIRUBIN,TOTAL 0.3 mg/dL (0.2-1.2); CALCIUM 8.4 mg/dL (8.4-10.2); CREATININE, serum 1.06 mg/dL (0.72-1.25); MAGNESIUM 1.7 mg/dL (1.6-2.6); POTASSIUM 3.9 mEq/L (3.5-4.5); TOTAL PROTEIN 6.1 g/dl (6.2-8.1)
[2024-01-20 06:20] LABS: HEMATOCRIT 21.1 % (42.0-52.0); HEMOGLOBIN 7.2 g/dl (13.5-18.0); MEAN CORPUSCULAR HEMOGLOBIN 32 pg (27-31)
--- NOTE | 2024-01-20 06:21 | NUR ---
LAB NOTIFIED THIS NURSE OF CRITICAL LAB OF 0.4 WBC, PROVIDER NOTIFIED, DR MURPHY.
[2024-01-20 06:30] LABS: BAND 8 % (0-10); LYMPHOCYTE 40 % (20.0-51.0); NEUTROPHILS 44 % (42.0-75.2)
[2024-01-20 06:31] LABS: ANISOCYTOSIS 2+; PLATELET ESTIMATE DECREASED (NORMAL)
[2024-01-20] MEDS ORDERED: Sennosides/Docusate 8.6-50 MG TAB PO SCH (09:00)
--- NOTE | 2024-01-20 10:00 | NUR ---
Patient resting in bed, alert and oriented x 4, getting fluids per orders. Some water and gatorade provided. Assessment completed, meds given. No further needs at this time. Call light within reach.
[2024-01-20] MEDS ORDERED: Potassium Bicarbonate/Citrate 20 MEQ Effervescent TAB PO ONE (11:45)
--- NOTE | 2024-01-20 14:53 | NUR ---
Aviation Medicine Specialist met with patient to check in and review discharge plan. Patient plans to return home by Saturday, "whether the doctors agree or not". Patient stated he has an appointment at on Saturday he intends to attend. Discharge Plan: Home
--- NOTE | 2024-01-20 18:24 | NUR ---
Patient resting in bed, awaiting for his dinner. States he does not have any needs right now. He had a BM early today, before the order for a stool sample placed. Pt aware we need to collect next time. Hat in restroom. Report will be given to night RN.
--- NOTE | 2024-01-20 20:30 | NUR ---
UPON SHIFT ASSESSMENT, ANDREA WAS AWAKE IN BED AND AXO X4. VS ARE WNL AND TELE IS IN NS. LUNG SOUNDS AUSCULTATE EXP WHEEZING IN ALL LOBES WITH FINE CRACKLE IN LOWER LOBES. O2 SAT WNL PATIENT DENIES SOA OR CHEST PAIN. HE IS CHEERFUL AND STATES NO NEEDS AT THIS TIME. CALL LIGHT HILARY LAMBERT.
[2024-01-21] VITALS (13 sets, daily range): BP systolic 112–156; BP diastolic 65–76; PULSE 56–80; TEMP 97.6–98.7
[2024-01-21 07:08] LABS: MEAN CELL VOLUME 92 fl (80.0-100.0); MEAN CORPUSCULAR HGB CONC 35 g/dl (33.0-37.0); MEAN PLATELET VOLUME 10.8 fl (7.4-10.4); RED BLOOD COUNT 2.25 M/mm3 (4.20-5.60); REDCELL DISTRIBUTION WIDTH-CV 17.6 % (11.5-14.5)
[2024-01-21 07:09] LABS: HEMATOCRIT 20.7 % (42.0-52.0); HEMOGLOBIN 7.3 g/dl (13.5-18.0); MEAN CORPUSCULAR HEMOGLOBIN 32 pg (27-31)
[2024-01-21 07:10] LABS: PLATELET COUNT 34 K/mm3 (130-400)
[2024-01-21 07:28] LABS: ALBUMIN 2.8 g/dL (3.4-4.8); BILIRUBIN,TOTAL 0.3 mg/dL (0.2-1.2); CALCIUM 9.1 mg/dL (8.4-10.2); CREATININE, serum 0.88 mg/dL (0.72-1.25); POTASSIUM 3.8 mEq/L (3.5-4.5); TOTAL PROTEIN 6.1 g/dl (6.2-8.1)
[2024-01-21 07:51] LABS: BAND 6 % (0-10); EOSINOPHIL 2 % (0-4); LYMPHOCYTE 52 % (20.0-51.0); NEUTROPHILS 26 % (42.0-75.2)
[2024-01-21 07:52] LABS: ANISOCYTOSIS 1+; PLATELET ESTIMATE DECREASED (NORMAL)
[2024-01-21] MEDS ORDERED: Potassium Bicarbonate/Citrate 20 MEQ Effervescent TAB PO ONE (08:00)
[2024-01-22] VITALS (7 sets, daily range): BP systolic 125–152; BP diastolic 71–82; PULSE 54–73; TEMP 97.5–98.6
[2024-01-22 07:00] LABS: CALCIUM 9.2 mg/dL (8.4-10.2); CREATININE, serum 0.89 mg/dL (0.72-1.25); POTASSIUM 4.2 mEq/L (3.5-4.5)
[2024-01-22 08:18] LABS: MEAN CELL VOLUME 88 fl (80.0-100.0); MEAN CORPUSCULAR HGB CONC 36 g/dl (33.0-37.0); MEAN PLATELET VOLUME 11.1 fl (7.4-10.4); RED BLOOD COUNT 2.66 M/mm3 (4.20-5.60); REDCELL DISTRIBUTION WIDTH-CV 17.5 % (11.5-14.5)
[2024-01-22 08:35] LABS: HEMATOCRIT 23.4 % (42.0-52.0); HEMOGLOBIN 8.5 g/dl (13.5-18.0); MEAN CORPUSCULAR HEMOGLOBIN 32 pg (27-31)
[2024-01-22 08:58] LABS: EOSINOPHIL 5 % (0-4); LYMPHOCYTE 77 % (20.0-51.0); NEUTROPHILS 15 % (42.0-75.2); PLATELET ESTIMATE DECREASED (NORMAL)
[2024-01-22 09:01] LABS: PLATELET COUNT 29 K/mm3 (130-400)
[2024-01-22] MEDS ORDERED: LEVAQUIN 750MG750 M1 PO (09:28)
[2024-01-22] MEDS ORDERED: Oseltamivir 75 MG CAP PO SCH (09:45)
== END 2024-01-22 13:03 | disposition home or self-care (01) | DRG 683 ==
LOC: COL.ER 21:49 → MEDICAL 01-18 00:49
PROVIDERS: Nurse Practitioner; Physician Assistant; ADMIT Hospitalist
DX: N17.9 Acute kidney failure, unspecified (principal); C7A.1 Malignant poorly differentiated neuroendocrine tumors; E87.1 Hypo-osmolality and hyponatremia; N39.0 Urinary tract infection, site not specified; D61.818 Other pancytopenia; I13.0 Hypertensive heart and chronic kidney disease with heart failure and stage 1 through stage 4 chronic kidney disease, or unspecified chronic kidney disease; D84.9 Immunodeficiency, unspecified; I47.29 Other ventricular tachycardia; J10.1 Influenza due to other identified influenza virus with other respiratory manifestations; J44.9 Chronic obstructive pulmonary disease, unspecified; E11.22 Type 2 diabetes mellitus with diabetic chronic kidney disease; Z20.822 Contact with and (suspected) exposure to COVID-19; N18.9 Chronic kidney disease, unspecified; J30.2 Other seasonal allergic rhinitis; E78.5 Hyperlipidemia, unspecified; I25.10 Atherosclerotic heart disease of native coronary artery without angina pectoris; E87.6 Hypokalemia; E11.42 Type 2 diabetes mellitus with diabetic polyneuropathy; E03.9 Hypothyroidism, unspecified; N18.30 Chronic kidney disease, stage 3 unspecified; I50.9 Heart failure, unspecified; D70.9 Neutropenia, unspecified; E83.42 Hypomagnesemia; F17.210 Nicotine dependence, cigarettes, uncomplicated; Z88.6 Allergy status to analgesic agent; Z88.0 Allergy status to penicillin; Z79.02 Long term (current) use of antithrombotics/antiplatelets; Z79.84 Long term (current) use of oral hypoglycemic drugs; Z79.899 Other long term (current) drug therapy; Z79.890 Hormone replacement therapy; Z23 Encounter for immunization
CPT/HCPCS: A9270; J0692; J1644; J1815; J2270; J3370; J3475; J7030; J7050